=== PATIENT | female | born 1965 | race Caucasian/White ===

== ENCOUNTER 2018-05-28 06:21 | Inpatient (IN) ==
[2018-05-28] MEDS ORDERED: Ipratropium/Albuterol Neb 3 ML IH ONE ×3 (06:51→08:29)
[2018-05-28] MEDS ORDERED: methylPREDNISolone 125 MG/2 ML VIAL IVP ONE (06:52)
--- NOTE | 2018-05-28 06:58 | Emergency Department Note ---
Disposition Clinical Impression: COPD with acute exacerbation Pneumonia Qualifiers: Pneumonia type: due to unspecified organism Laterality: bilateral Lung location: unspecified part of lung Qualified Code(s): J18.9 - Pneumonia, unspecified organism Disposition: Admitted As Inpatient Referrals: Dana Mendez CNP [Primary Care Provider] - Forms: ED Satisfaction Letter Time of Disposition: 09:19 SOB HPI - General Chief Complaint: ED Upper Respiratory Infection Stated Complaint: SOB Cough Chills Congestion Time Seen by Provider: 05/28/18 06:39 Source: patient Mode of arrival: ambulatory Limitations: no limitations Nursing Notes Reviewed: Yes Vital Signs Reviewed: Yes - History of Present Illness shortness of breath onset several days ago. cough. too dyspneic today to walk up her stairs. she has had no sputum. has hx pnx and COPD AND required inpt in past. smoker no fever or vomiting, CP or unusual sputum production Pt Subjective Complaint: shortness of breath, cough Onset (ago): day(s) (5) Context: recent illness Severity: moderate Consistency/Duration: constant, gradually worsening Improves with: rest, bronchodilators Worsens with: exertion, coughing Known history of: COPD, asthma Associated symptoms: Reports: cough, wheezing, sputum production, diaphoresis, sense of impending doom. Denies: chest pain, pain with inspiration, fever, orthopnea, lower extremity pain, palpitations, nausea/vomiting, abdominal pain Treatment prior to arrival: bronchodilator (6 nebs at home inpast 24 hrs) Cough present: Yes Cough Description: Voluntary, Moist, Strong Cough Frequency: Intermittent Sputum Color: Yellow, Green - Related Data Home oxygen amount: none Home Medications Medication Instructions Recorded Confirmed Albuterol Neb [Proventil Neb] 2.5 mg IH Q4HR 03/01/17 05/28/18 Lisinopril-HCTZ 10-12.5 [Prinzide 1 each PO DAILY 03/01/17 05/28/18 10-12.5] Albuterol Sulfate [Albuterol 1 puff IH DAILY 05/28/18 05/28/18 Inhaler] Loratadine [Allergy Relief] 10 mg PO DAILY 05/28/18 05/28/18 Tiotropium [Spiriva] 18 mcg IH 0700 05/28/18 05/28/18 Triamcinolone Acetonide [Nasacort] 10.8 ml NS DAILY 05/28/18 05/28/18 Allergies Allergy/AdvReac Type Severity Reaction Status Date / Time Penicillins Allergy Mild Rash Verified 05/28/18 06:38 clarithromycin [From Biaxin] Allergy See Verified 05/28/18 06:38 Comments sulfamethoxazole Allergy See Verified 05/28/18 06:38 [From Bactrim] Comments trimethoprim [From Bactrim] Allergy See Verified 05/28/18 06:38 Comments All systems ED: reviewed and negative except as stated. Review of Systems: As Per HPI Past Medical History - Past Medical History Medical history: Reports: asthma, COPD, hypertension, other Psychiatric history: Reports: no psych history PARTY HOST history: Reports: no PARTY HOST history - Social History Smoking Status: Current every day smoker Smokeless Tobacco Status: No Alcohol use: Reports: none Drug use: Reports: none Physical Exam Constitutional: Patient is oriented to person, place, and time. Skin color is pink. Appears well hydrated, body habitus obese. Appears acutely uncomfortable, dyspneic, tachypnea, wheezing, difficulty speaking more than a few words at a time without significant dyspnea Head: Normocephalic and atraumatic. External ear exam normal Nose: Nose normal. Mouth/Throat: Uvula is midline, oropharynx is clear and moist and mucous membranes are normal. Eyes: Conjunctivae nl, extraocular motions and lids are normal. Pupils are equal, round, and reactive to light. Neck: Normal range of motion and phonation normal. Neck supple. Cardiovascular: Rapid rate, regular rhythm, normal heart sounds. Pulmonary/Chest: Presents in Respiratory distress. With intercostal retraction Respiratory Effort increased and breath sounds diminished, poor air exchange, prolonged expiratory phase and wheezing throughout all lung tate Abdominal: Soft. Normal appearance and bowel sounds are normal. no tenderness, no masses, no guarding, no rebound Musculoskeletal: Good distal pulses. Soft compartments. Brisk cap refill. Extremities: Normal range of motion.Intact peripheral pulses. No Edema. Extremity skin color nl, no calf tenderness or palpable cords. Neurological: GCS 15. Patient is alert and oriented without evidence of obvious motor deficits Skin: Skin is warm, dry and intact. color is normal, cap refill is quick Psychiatric: Patient has normal mood and affect. Patient speech is normal. Behavior and thought content normal - General Limitations: no limitations General appearance: alert, in no apparent distress Course - Reevaluation(s) Reevaluation #1: Patient presented with pulse ox 79 after the exertion of my examination and moving about on the bed. She rested for a few minutes and became less dyspneic and her pulse ox returned to 83%. I placed her on nasal cannula oxygen and 3 L nasal cannula brought the patient's pulse ox to 93% Capnography was placed and she read 36 Tolerated the DuoNeb and became slightly less dyspneic Time: 07:09 Reevaluation #2: She was reevaluated. Continues to have wheezing. I took her off the oxygen temporarily just sitting in bed and she dropped her oxygen and 88% and became dyspneic. Patient clearly requires hospitalization. I discussed this with her and she is agreeable. She is agreeable to stay here as well. I discussed the case with Dr. Holt who agrees to admit the patient and we discussed antibiotic choice. The patient has multiple allergies and he indicates that he would request as a courtesy I enter some initial admitting orders and he will see the patient in a timely fashion Time: 09:10 Vital Signs Temperature 98.7 F 05/28/18 06:25 Pulse Rate 92 05/28/18 06:25 Respiratory Rate 22 05/28/18 06:25 Blood Pressure 138/85 05/28/18 06:25 O2 Sat by Pulse Oximetry 86 05/28/18 06:25 Temperature 98.7 F 05/28/18 06:25 Pulse Rate 91 05/28/18 09:08 Respiratory Rate 16 05/28/18 09:08 Blood Pressure 165/98 05/28/18 09:08 O2 Sat by Pulse Oximetry 94 05/28/18 09:08 Oxygen Delivery Oxygen Delivery Nasal Cannula Shortness of Breath/Dyspnea - Differential Diagnosis Likely: acute exacerbation of chronic obstructive airways disease, pneumonia - Medical Records Medical records reviewed: Yes I reviewed the patient's medical records. - Lab Data Lab results reviewed: Yes I reviewed the patient's lab results. Result diagrams: 05/28/18 07:36 05/28/18 07:36 Lab Results 05/28/18 05/28/18 05/28/18 Range/Units 07:36 07:36 07:36 WBC 5.7 (4.3-11.1) K/mcL RBC 5.23 H (3.82-4.97) M/mcL Hgb 15.1 (11.5-15.4) g/dL Hct 45.6 H (35.3-44.9) % MCV 87.2 (83.0-100.0) fL MCH 28.9 (28.0-33.3) pg MCHC 33.1 (31.6-35.5) g/dL RDW 14.5 (11.5-14.5) % Plt Count 226 (140-400) K/mcL MPV 9.6 (9.4-12.4) fL Immature Gran % 0.4 (0-4) % Seg Neutrophils % 54.5 % Lymphocytes % 33.0 % Monocytes % 11.2 % Eosinophils % 0.2 % Basophils % 0.7 % Neutrophils # 3.1 (1.6-8.9) K/mcL Lymphocytes # 1.9 (0.6-4.6) K/mcL Monocytes # 0.6 (0.0-1.3) K/mcL Eosinophils # 0.0 (0.0-0.6) K/mcL Basophils # 0.0 (0.0-0.2) K/mcL VBG pH (7.32-7.42) pH Units VBG pCO2 (41-51) mmHg VBG pO2 (25-50) mmHg VBG HCO3 (21-27) mEq/L Sodium 133 L (136-145) mEq/L Potassium 3.4 L (3.5-5.1) mEq/L Chloride 98 (98-107) mEq/L Carbon Dioxide 26 (23-29) mEq/L BUN 19 (6-20) mg/dL Creatinine 0.84 (0.60-1.20) mg/dL Est GFR ( Amer) > 60 (> 60) Est GFR (Non-Af Amer) > 60 (> 60) BUN/Creatinine Ratio 23 (6-26) Glucose 128 H (70-105) mg/dL Calculated Osmolality 280 (280-300) Lactic Acid 0.9 (0.5-2.2) mmol/L Calcium 8.6 (8.6-10.3) mg/dL B-Natriuretic Peptide (Less than 100) pg/mL 05/28/18 05/28/18 Range/Units 07:36 07:48 WBC (4.3-11.1) K/mcL RBC (3.82-4.97) M/mcL Hgb (11.5-15.4) g/dL Hct (35.3-44.9) % MCV (83.0-100.0) fL MCH (28.0-33.3) pg MCHC (31.6-35.5) g/dL RDW (11.5-14.5) % Plt Count (140-400) K/mcL MPV (9.4-12.4) fL Immature Gran % (0-4) % Seg Neutrophils % % Lymphocytes % % Monocytes % % Eosinophils % % Basophils % % Neutrophils # (1.6-8.9) K/mcL Lymphocytes # (0.6-4.6) K/mcL Monocytes # (0.0-1.3) K/mcL Eosinophils # (0.0-0.6) K/mcL Basophils # (0.0-0.2) K/mcL VBG pH 7.43 H (7.32-7.42) pH Units VBG pCO2 39 L (41-51) mmHg VBG pO2 79 H (25-50) mmHg VBG HCO3 26 (21-27) mEq/L Sodium (136-145) mEq/L Potassium (3.5-5.1) mEq/L Chloride (98-107) mEq/L Carbon Dioxide (23-29) mEq/L BUN (6-20) mg/dL Creatinine (0.60-1.20) mg/dL Est GFR ( Amer) (> 60) Est GFR (Non-Af Amer) (> 60) BUN/Creatinine Ratio (6-26) Glucose (70-105) mg/dL Calculated Osmolality (280-300) Lactic Acid (0.5-2.2) mmol/L Calcium (8.6-10.3) mg/dL B-Natriuretic Peptide 20 (Less than 100) pg/mL - Radiology Data Radiology results reviewed: Yes I reviewed the patient's radiology results. Chest x-ray shows infiltrate at the left lung base and another area of consolidation at the right midlung field CT scan chest reveals impression radiology 1 scattered bilateral lung infiltrates most pronounced in the upper lobes concerning for multi focal pneumonia Indeterminate 9 mm noncalcified pulmonary nodule in the right upper lobe Emphysema Mediastinal lymph nodes large requiring follow-up - EKG Data EKG attestation: Yes I reviewed and interpreted this EKG. EKG results narrative: ECG reveals sinus rhythm with rate of 89. No evidence of acute ST-T wave changes. Normal intervals. Normal ECG
[2018-05-28] MEDS ORDERED: Levofloxacin 750 MG/150 ML 750 MG/150 ML BAG IVPB ONE (07:11)
[2018-05-28] MEDS ORDERED: 0.9 % Sodium Chloride 1,000 ML IVC ONE (07:13)
[2018-05-28] MEDS ORDERED: Isovue-370 500 ML BOTTLE IVP ONE (07:13)
[2018-05-28 07:44] LABS: Basophils % 0.7 %; Eosinophils % 0.2 %; Hematocrit 45.6 % (35.3-44.9); Hemoglobin 15.1 g/dL (11.5-15.4); Immature Granulocytes % 0.4 % (0-4); Lymphocytes # 1.9 K/mcL (0.6-4.6); Mean Corpuscular HGB Conc 33.1 g/dL (31.6-35.5); Mean Corpuscular Hemoglobin 28.9 pg (28.0-33.3); Mean Corpuscular Volume 87.2 fL (83.0-100.0); Mean Platelet Volume 9.6 fL (9.4-12.4); Monocytes # 0.6 K/mcL (0.0-1.3); Monocytes % 11.2 %; Neutrophils # 3.1 K/mcL (1.6-8.9); Platelet Count 226 K/mcL (140-400); Red Blood Count 5.23 M/mcL (3.82-4.97); Red Cell Distribution Width 14.5 % (11.5-14.5); Segmented Neutrophils % 54.5 %
[2018-05-28] MEDS ORDERED: ISOVUE-370 100 ML INFUS..BTL IVP ONE (07:47)
[2018-05-28 07:51] LABS: VBG HCO3 26 mEq/L (21-27); VBG PCO2 39 mmHg (41-51); VBG PH 7.43 pH Units (7.32-7.42); VBG PO2 79 mmHg (25-50)
[2018-05-28 08:02] LABS: BUN/Creatinine Ratio 23 (6-26); Blood Urea Nitrogen 19 mg/dL (6-20); Calcium 8.6 mg/dL (8.6-10.3); Carbon Dioxide 26 mEq/L (23-29); Chloride 98 mEq/L (98-107); Glucose 128 mg/dL (70-105); Osmolality,Calculated 280 (280-300); Potassium 3.4 mEq/L (3.5-5.1); Sodium 133 mEq/L (136-145); eGFR For Non-African Americans > 60 (> 60)
[2018-05-28] MEDS ORDERED: Acetaminophen 325 MG TABLET PO PRN (10:22)
[2018-05-28] MEDS ORDERED: Ipratropium/Albuterol Neb 3 ML IH SCH (10:22)
[2018-05-28] MEDS ORDERED: Naloxone 0.4 MG/ML INJ IVP PRN (10:22)
[2018-05-28 11:24] LABS: Magnesium 2.1 mg/dL (1.6-2.6)
[2018-05-28] MEDS: Ipratropium/Albuterol Neb 3 ML IH SCH ×4 (12:52→23:16)
[2018-05-28] MEDS: Loratadine 10 MG TABLET PO SCH (12:53)
[2018-05-28] MEDS: MethylPREDNISolone 40 MG/ML VIAL IVP SCH ×3 (12:54→20:43)
[2018-05-28] MEDS: 0.9 % Sodium Chloride 1,000 ML IVC SCH ×2 (13:06→20:46)
[2018-05-28] MEDS ORDERED: Melatonin 3 MG TABLET PO PRN (14:13)
[2018-05-28] MEDS ORDERED: Mag Hydrox/Al Hydrox/Simeth 30 ML UDC PO PRN (14:14)
--- NOTE | 2018-05-28 14:59 | Internal Med History&Physical ---
Addendum entered and electronically signed by Carlos A Mccormack MD 05/29/18 13:58: I have personally performed a face to face evaluation on this patient. I have r eviewed and agree with the care plan. History and Exam by me shows: The patient was evaluated by me yesterday but the note was not complete. This documentation is being completed today for that reason. Patient has a 3-4 day history of weakness of shortness of breath and progressively worse cough. She felt like this is a worsening of her COPD and that she must have something done or it would get worse. She states that when she came in her oxygen was low and she could not breathe. She felt like she needed to come to the emergency room about 18 hours before she actually came. She continues to smoke and we talked about this. She states that she has not smoked in 4 days. H&P as below were reviewed with her. She is concerned about being able to leave and is willing to stay overnight but will want to go home tomorrow, even if it means using oxygen at home. Past medical history is significant mainly for COPD and hypertension. Patient has no complaint of chest discomfort, dyspnea, orthopnea, breathing problems, palpitations, nausea or vomiting, constipation or diarrhea, other changes in bowel habits, heartburn, difficulty with urination, kidney problems or kidney stones, fevers chills or sweats, rash or itching, seizures, headache or lightheadedness, heat or cold intolerance, blood problems or anemia, or other new complaints, except as mentioned above. Review of systems is otherwise negative. Examination: (Except as mentioned above): General: In no apparent distress, alert and oriented 3. Head: Atraumatic and normocephalic. Eyes: Extraocular muscles are intact, pupils equal round and reactive to light and accommodation. Sclerae anicteric. Ears: External ears are normal to inspection and hearing is grossly normal. Nose: Patent without lesion noted. Mouth: No intraoral lesions seen. Dentition is unremarkable. Neck: Supple with trachea midline. There is no thyromegaly or adenopathy and carotids are 2+ without bruit heard. Respiratory: No use of accessory muscles. Lungs have diffuse wheezes, especially expiratory. No egophony or signs of consolidation. Normal airflow. Cardiovascular: Regular rate and rhythm without murmur appreciated. Abdomen: Bowel sounds are normal. No hepatosplenomegaly masses or tenderness. Morbidly obese and therefore difficult to palpate deeply. Extremities: No cyanosis clubbing or edema. Neurological: A and O 3. Cranial nerves II through XII are intact. No focal deficits and no abnormal movements or postures. Skin: Warm and non-diaphoretic with no lesions noted. Breasts, pelvic and rectal: Not examined. She will receive IV antibiotics and steroids as well as support of respiratory status with nebulized treatments and oxygen. Original Note: Date of Encounter: 05/28/18 Time of Encounter: 14:57 Assessment and Plan (1) Pneumonia Current visit: Yes Status: Acute Continue IV Levaquin. Will monitor for improvement. Qualifiers: Pneumonia type: due to unspecified organism Laterality: bilateral Lung location: unspecified part of lung Qualified Code(s): J18.9 - Pneumonia, unspecified organism (2) COPD with acute exacerbation Current visit: Yes Status: Acute Continue Solu-Medrol IV. Maintaining oxygen at 3 L sats greater than 92%. Continue inhaled meds. Internal Medicine - H&P: HPI Admitted From: Emergency Dept Plans for Post Hospital Care: Home History of present illness: Ms. Taylor is a 53 year old female admitted for observation with pneumonia and COPD exacerbation. Patient came through the emergency room this morning after having a several day history of shortness of breath and cough. Has had pneumonia in the past and required hospitalization. Patient maintaining oxygen greater than 92% at 3 L per nasal cannula. Patient is a current smoker with hypertension. Denies fever, chills, nausea vomiting or diarrhea. States shortness of breath has improved. Receiving IV antibiotics and steroids. Past Med Surg Social Fam HX - Past Medical History Medical history: asthma, COPD, hypertension, other Additional medical history: Seasonal allergies. Psychiatric history: no psych history - Past Surgical History Additional surgical history: Nasal surgery - Social History Smoking Status: Current every day smoker Smokeless Tobacco Status: No Alcohol use: none Drug use: none - Family History Mother History Unknown: Yes Hx Family Cancer: Yes (breast cancer) Sister History Unknown: Yes Hx Family Cancer: Yes (breast cancer) Internal Medicine - H&P: Meds Albuterol Neb [Proventil Neb] 2.5 mg IH Q4HR 03/01/17 [History] Lisinopril-HCTZ 10-12.5 [Prinzide 10-12.5] 1 each PO DAILY 03/01/17 [History] Albuterol Sulfate [Albuterol Inhaler] 1 puff IH DAILY 05/28/18 [History] Loratadine [Allergy Relief] 10 mg PO DAILY 05/28/18 [History] Tiotropium [Spiriva] 18 mcg IH 0700 05/28/18 [History] Triamcinolone Acetonide [Nasacort] 10.8 ml NS DAILY 05/28/18 [History] Allergy/AdvReac Type Severity Reaction Status Date / Time Penicillins Allergy Mild Rash Verified 05/28/18 06:38 clarithromycin [From Biaxin] Allergy See Verified 05/28/18 06:38 Comments sulfamethoxazole Allergy See Verified 05/28/18 06:38 [From Bactrim] Comments trimethoprim [From Bactrim] Allergy See Verified 05/28/18 06:38 Comments All Systems PM: A 10-system review of systems was performed and is negative for pertinent findings except as documented above in the HPI. Review of systems: All negative except what is stated in HPI. - Constitutional Constitutional: no chills, no fever(s), no night sweats - EENT Eyes: no change in vision, no discharge, no pain, no photophobia Ears: no ear discharge, no ear pain, no tinnitus Nose, mouth and throat: no dysphagia, no nasal discharge, no neck pain, no sore throat - Cardiovascular Cardiovascular ROS IM: no chest pain, no diaphoresis, no dyspnea, no lightheadedness, no palpitations, no syncope - Respiratory Respiratory: no cough, no dyspnea, no wheezing, no excessive phlegm production - Gastrointestinal Gastrointestinal: no abdominal pain, no diarrhea, no hematemesis, no hematochezia, no melena, no nausea, no vomiting - Genitourinary Genitourinary: no change in urinary stream, no dysuria, no flank pain, no hematuria - Musculoskeletal Musculoskeletal ROS IM: no numbness, no tingling - Integumentary Integumentary IM: no rash, no unusual bruising - Neurological Neurological ROS: no confusion, no convulsions, no focal weakness, no numbness, no tingling, no tremor(s) - Hematologic/Lymphatic Hematologic/Lymphatic: no easy bruising - Constitutional Vitals: Temp Pulse Resp BP Pulse Ox 97.8 F 86 18 113/77 91 05/28/18 10:51 05/28/18 10:51 05/28/18 11:25 05/28/18 10:51 05/28/18 14:22 General appearance: Present: cooperative, A&O X 3, no acute distress, obese, answers questions appropriately - Head Head exam: Present: atraumatic, normocephalic - Eye Eye exam: Present: PERRL, conjuntiva pink, sclera anicteric Pupils: Present: PERRL - Neck Neck exam general surgery: Present: supple, trachea midline. Absent: lymphadenopathy - Respiratory Respiratory exam: Present: rales. Absent: accessory muscle use, rhonchi, wheezes Additional comments: Diminished bilateral bases. Congested cough. Fine crackle to right base - Cardiovascular Cardiovascular exam: Present: RRR, +S1, +S2. Absent: diastolic murmur, gallop, rubs, systolic murmur - GI/Abdominal GI/Abdominal exam: Present: normal bowel sounds, soft, no peritoneal signs. Absent: distended, tenderness - Extremities Exam Extremities exam: Present: warm, radial pulses palpable and symmetrical. Absent: calf tenderness, cyanotic, pedal edema - Neurological Exam Neurological exam: Present: CN II-XII intact, oriented X3, no focal deficits. Absent: pronater drift, facial droop, speech deficit - Skin Skin exam: Present: dry, intact Internal Med - H&P Results - Labs CBC & Chem 7: 05/28/18 07:36 05/28/18 07:36 Labs: Short CBC 05/28/18 Range/Units 07:36 WBC 5.7 (4.3-11.1) K/mcL Hgb 15.1 (11.5-15.4) g/dL Hct 45.6 H (35.3-44.9) % Plt Count 226 (140-400) K/mcL Neutrophils # 3.1 (1.6-8.9) K/mcL BMP 05/28/18 07:36 Sodium 133 L Potassium 3.4 L Chloride 98 Carbon Dioxide 26 BUN 19 Creatinine 0.84 Glucose 128 H Calcium 8.6 - ABG Interpretation ABG results: 05/28/18 07:48 VBG pH 7.43 H VBG pCO2 39 L VBG pO2 79 H VBG HCO3 26 - Impressions ITS Impressions Chest X-Ray 05/28/18 06:52 IMPRESSION: 1. Increased pulmonary vascular congestion. D/ / 05/28/2018 08:15:35 Jose Montoya MD / nora Interpreting Provider: Jose Montoya MD Chest CT 05/28/18 07:13 IMPRESSION: 1. There are scattered bilateral lung infiltrates, most pronounced in the upper lobes, concerning for multifocal pneumonia. 2. Indeterminate 9 mm noncalcified pulmonary nodule in the right upper lobe (series 3, image 59). Please see the follow-up imaging recommendations below. 3. Centrilobular and paraseptal emphysema. 4. Fatty liver. 5. Sequela of old granulomatous disease. 6. Indeterminate enlarged mediastinal lymph nodes, the largest of which are superior mediastinal and precarinal lymph nodes. Attention on follow-up imaging is recommended. RECOMMENDATIONS: Fleischner Society guidelines for follow-up and management of incidentally detected pulmonary nodules: Single Solid Nodule: Nodule size greater than 8 mm In a low-risk patient, consider CT at 3 months, PET/CT, or tissue sampling. In a high-risk patient, consider CT at 3 months, PET/CT, or tissue sampling. - Low risk patients include individuals with minimal or absent history of smoking and other known risk factors. - High risk patients include individuals with a history or smoking or known risk factors. Radiology 2017 http://pubs.rsna.org/doi/full/10.1148/radiol.[email or web address] D/ / 05/28/2018 08:54:08 Jose Montoya MD / Consuelo Perkins Interpreting Provider: Jose Montoya MD
[2018-05-28] MEDS ORDERED: GuaiFENesin Liq 200 MG/10 ML UDC PO PRN (20:02)
--- NOTE | 2018-05-28 23:49 | Electrocardiograph Report ---
[address] [address] Test Date: 2018-05-28 Pat Name: Lela Taylor Department: EDG1 Room: 116 Gender: F [employer] Operator: : [id number] Requested By: Shira Mina Order Number: [id number] Reading MD: Judy Mccray Measurements Intervals [place] Rate: 89 P: 77 SC: 157 QRS: 71 QRSD: 110 T: 53 QT: 373 QTc: 454 Interpretive Statements Sinus rhythm Incomplete right bundle branch block Electronically Signed On 05-28-2018 23:47:24 EST by Judy Mccray
[2018-05-29] MEDS ORDERED: *HR* Enoxaparin 40 MG/0.4 ML SYRINGE SQ SCH (06:00)
[2018-05-29] MEDS ORDERED: Tiotropium 18 MCG inhalation IH SCH (07:00)
[2018-05-29] MEDS: Ipratropium/Albuterol Neb 3 ML IH SCH ×3 (07:37→15:18)
[2018-05-29] MEDS: Loratadine 10 MG TABLET PO SCH (08:36)
[2018-05-29] MEDS: MethylPREDNISolone 40 MG/ML VIAL IVP SCH ×2 (08:36→14:01)
[2018-05-29] MEDS ORDERED: Levofloxacin 750 MG/150 ML 750 MG/150 ML BAG IVPB SCH (09:00)
--- NOTE | 2018-05-29 11:48 | Discharge Summary ---
Addendum entered and electronically signed by Carlos A Mccormack MD 05/29/18 14:02: I have personally performed a face to face evaluation on this patient. I have r eviewed and agree with the care plan. History and Exam by me shows: Patient is wanting to go home. She feels much better than yesterday. She wants to see her dog and says that she will stop smoking. She states that she did not sleep well but did not sleep well at home, either. Patient has no complaint of chest discomfort, dyspnea, orthopnea, palpitations, nausea or vomiting, constipation or diarrhea, other changes in bowel habits, difficulty with urination, rash or itching, or other new complaints, except as mentioned above. Review of systems is otherwise negative. I discussed management of her care with nursing staff. Examination: (Except as mentioned above): General: In no apparent distress. Alert and oriented 3. Nondiaphoretic. Head: Atraumatic and normocephalic. Respiratory: No use of accessory muscles. Lungs are clear throughout. Normal airflow. Cardiovascular: Regular rate and rhythm without murmur appreciated. Abdomen: Bowel sounds are normal. No hepatosplenomegaly mass or tenderness appreciated. Morbidly obese and therefore difficult to palpate deeply. Extremities: No cyanosis clubbing or edema. Skin: Warm and non-diaphoretic with no new lesions noted. We will treat her with 10 days of oral Levaquin and a steroid burst. She has been instructed to see her primary care, Lg Mendez CNP, with in a week. She will be allowed to return to work in 5 days. She says that she needs to do this in order to pay bills and I told her it is better to rest and relax until seen by Nehemias Andrea if she is unable to tolerate activity. Original Note: Orders not resulted at time of discharge: Pending orders 05/28/18 07:44 Culture,Blood [BC] Stat Date of Encounter: 05/29/18 Time of Encounter: 11:44 - Discharge Diagnosis (1) Pneumonia Priority: Primary Status: Acute Comments: Improving. Continue Levaquin 750 mg for 7 days. Continue prednisone 40 mg for 5 days. Continue duo nebs. States she has nebulizer and plan your solution at home. Follow up with PCP within one week. Qualifiers: Pneumonia type: due to unspecified organism Laterality: bilateral Lung location: unspecified part of lung Qualified Code(s): J18.9 - Pneumonia, unspecified organism (2) COPD with acute exacerbation Priority: Secondary Status: Acute Comments: Continue inhaled meds. Follow up with PCP. Hospital course: Ms. Taylor is a 53 year old female discharging to home after overnight hospitalization with pneumonia. Patient has been improving with Levaquin and Solu-Medrol IV. Denies shortness of breath or chest pain. Denies fever, chills, nausea vomiting or diarrhea. Will continue Levaquin and prednisone PO. Follow up with PCP in one week. Discharge discussed with: patient, nurse - Time Spent with Patient Total time spent providing and/or coordinating discharge services: Less than 30 minutes - Discharge Medications Home Medications: Albuterol Neb [Proventil Neb] 2.5 mg IH Q4HR 03/01/17 [History] Lisinopril-HCTZ 10-12.5 [Prinzide 10-12.5] 1 each PO DAILY 03/01/17 [History] Albuterol Sulfate [Albuterol Inhaler] 1 puff IH DAILY 05/28/18 [History] Loratadine [Allergy Relief] 10 mg PO DAILY 05/28/18 [History] Tiotropium [Spiriva] 18 mcg IH 0700 05/28/18 [History] Triamcinolone Acetonide [Nasacort] 10.8 ml NS DAILY 05/28/18 [History] Acetaminophen [Tylenol] 650 mg PO Q6HR PRN tablet 05/29/18 [Rx] GuaiFENesin Liq [Robitussin Liq] 200 mg PO Q6HR PRN udc 05/29/18 [Rx] Ipratropium/Albuterol Neb [Duoneb] 3 ml IH 5XD inhsol 05/29/18 [Rx] Melatonin 3 mg PO HS PRN tablet 05/29/18 [Rx] Allergies/Adverse Reactions: Allergy/AdvReac Type Severity Reaction Status Date / Time Penicillins Allergy Mild Rash Verified 05/28/18 06:38 clarithromycin [From Biaxin] Allergy See Verified 05/28/18 06:38 Comments sulfamethoxazole Allergy See Verified 05/28/18 06:38 [From Bactrim] Comments trimethoprim [From Bactrim] Allergy See Verified 05/28/18 06:38 Comments Date of admission: 05/28/18 10:22 Primary care physician: Dana Mendez CNP Discharging clinician: Carlos A Mccormack Anticipated date of discharge: 05/29/18 - Constitutional Vitals: Temp Pulse Resp BP Pulse Ox 97.9 F 89 19 141/83 93 05/29/18 09:26 05/29/18 09:26 05/29/18 11:22 05/29/18 09:26 05/29/18 11:22 General appearance: Present: cooperative, A&O X 3, no acute distress, obese, answers questions appropriately - Head Head exam: Present: atraumatic, normocephalic - Eye Eye exam: Present: PERRL, conjuntiva pink, sclera anicteric Pupils: Present: PERRL - Neck Neck exam general surgery: Present: supple, trachea midline. Absent: lymphadenopathy - Respiratory Respiratory exam: Present: CTAB. Absent: accessory muscle use, rales, rhonchi, wheezes - Cardiovascular Cardiovascular exam: Present: RRR, +S1, +S2. Absent: diastolic murmur, gallop, rubs, systolic murmur - GI/Abdominal GI/Abdominal exam: Present: normal bowel sounds, soft, no peritoneal signs. Absent: distended, tenderness - Extremities Exam Extremities exam: Present: warm, radial pulses palpable and symmetrical. Absent: calf tenderness, cyanotic, pedal edema - Neurological Exam Neurological exam: Present: CN II-XII intact, oriented X3, no focal deficits. Absent: pronater drift, facial droop, speech deficit - Skin Skin exam: Present: dry, intact - Patient Status Disposition: Home, Self-Care Condition: Good Functional capacity at discharge: independent ambulation Overall status at discharge: patient is progressing back to baseline - Discharge Instructions Follow Up With: Dana Mendez CNP [Primary Care Provider] - - Diet and Activity Activity: increase activity as tolerated Diet: advance to your usual diet
[2018-05-29 13:12] VITALS: BP 129/79
== END 2018-05-29 18:44 | disposition home or self-care (01) | DRG 190 ==
LOC: EMEROOGRE 06:21 → INPGRE 06:21 → EMEROOGRE 09:11 → INPGRE 10:06